=== PATIENT | female | born 2000 | race Caucasian/White ===

== ENCOUNTER 2023-10-09 12:54 | Emergency (ER) | payer OTHER ==
[~2023-10-09] VITALS: Ht 190.5 cm; Wt 83.2 kg
[~2023-10-09 12:54] MED LIST: COLACE100 MG PO; NORCO 5-325 TA1 EACH PO; PROMETHAZINE HC25 M1 PO
[2023-10-09] MEDS ORDERED: ZOLOFT100 MG PO (13:31)
[2023-10-09] MEDS ORDERED: CLONIDINE HCL0.1 MG PO (13:31)
[2023-10-09] MEDS ORDERED: VYVANSE40 MG PO (13:32)
[2023-10-09] MEDS ORDERED: SUDOGEST30 MG PO (14:01)
[2023-10-09 14:10] VITALS: BP 128/89
== END 2023-10-09 14:13 | disposition home or self-care (01) ==
LOC: ED 12:54
DX: H69.82 Other specified disorders of Eustachian tube, left ear (principal); Z79.899 Other long term (current) drug therapy
CPT/HCPCS: 99282